=== PATIENT | male | born 1995 | race Caucasian/White ===

== ENCOUNTER 2021-01-08 07:22 | Emergency (ER) | payer SELFPAY ==
[~2021-01-08] VITALS: Ht 188 cm; Wt 81.6 kg
[2021-01-08 07:35] VITALS: BP 120/97
[2021-01-08] MEDS ORDERED: DICYCLOMINE HCL LIQUID 20 MG, ALUMINUM HYD/MAG/SIMETHICONE 30 ML, LIDOCAINE VISCOUS 2% ... PO ONE ×3 (07:50)
[2021-01-08] MEDS ORDERED: ALUMINUM HYD/MAG/SIMETHICONE 30 ML UDC ONE (07:51)
[2021-01-08] MEDS ORDERED: DICYCLOMINE HCL LIQUID 10 MG/5 ML UDC ONE (07:51)
--- NOTE | 2021-01-08 08:21 | NUR ---
25/M PRESENTS TO ED WITH C/O UPPER ABDOMINAL PAIN AND SOB. STATING SINCE YESTERDAY PAIN HAS BEEN WORSENING, DENIES N/V/D, STATING TODAY BEGAN FEELING SHORT OF BREATH. PATIENT DENIES TAKING ANYTHING AT HOME PRIOR TO ARRIVAL, DENIES CP, FEVER, CHILLS, OR URINARY SYMPTOMS.
[2021-01-08] MEDS ORDERED: MAG-27 PO (08:40)
--- NOTE | 2021-01-08 08:59 | NUR ---
Patient discharged with v/s stable. Written and verbal after care instructions given and explained ABOUT INDIGESTION AND GASTRITIS. Patient alert, oriented and verbalized understanding of instructions. Ambulatory with steady gait. All questions addressed prior to discharge. ID band removed. Patient advised to follow up with PMD. Rx of MYLANTA MAXIMUM [employer]ENGTH given. Patient educated on indication of medication including possible reaction and side effects. Opportunity to ask questions provided and answered.
== END 2021-01-08 08:59 | disposition home or self-care (01) ==
LOC: MED 07:22
DX: R10.13 Epigastric pain (principal); R06.02 Shortness of breath; R07.9 Chest pain, unspecified
CPT/HCPCS: 71045; 93005; 99283; Q0092